=== PATIENT | female | born 1995 | race Caucasian/White ===

== ENCOUNTER 2017-03-27 01:16 | Emergency (ER) | payer SELFPAY ==
[~2017-03-27] VITALS: Ht 170.2 cm; Wt 55.7 kg
[~2017-03-27 01:16] MED LIST: IBUP-1050 PO; TYLENOL SUSPENSION PO
[2017-03-27 01:31] VITALS: TEMP 36.5; Ht 170.2 cm; Wt 55.7 kg
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
[2017-03-27] MEDS ORDERED: LIDOCAINE/EPINEPHRINE 1% 20 ML VIAL INFIL ONE (03:30)
[2017-03-27 04:25] VITALS: BP 132/88; PULSE 102; O2SAT 98
== END 2017-03-27 04:27 | disposition home or self-care (01) ==
LOC: C.EDB 01:17 → C.EDD 04:27
DX: S01.01XA Laceration without foreign body of scalp, initial encounter (principal); V86.95XA Unspecified occupant of 3- or 4- wheeled all-terrain vehicle (ATV) injured in nontraffic accident, initial encounter